=== PATIENT | male | born 1960 | race Caucasian/White ===

== ENCOUNTER 2017-01-05 10:14 | Emergency (ER) | payer OTHER | END 2017-01-05 10:15 | disposition home or self-care (01) | LOC: ER 10:14 | PROC: 0XQQXZZ Repair Right Middle Finger, External Approach (ICD-10-PCS; principal; 2017-01-05) | DX: S61.212A Laceration without foreign body of right middle finger without damage to nail, initial encounter (principal); W45.8XXA Other foreign body or object entering through skin, initial encounter | CPT/HCPCS: 90471; 90714; 99282 ==